=== PATIENT | female | born 1935 | race African-American/Black ===

== ENCOUNTER 2017-04-08 08:00 | Outpatient (CLI) | payer MEDICARE, MEDICAID | END 2017-04-08 08:01 | disposition home or self-care (01) | LOC: BICMAMMO 08:00 | PROVIDERS: ATTEND Family Medicine | DX: Z12.31 Encounter for screening mammogram for malignant neoplasm of breast (principal); Z80.3 Family history of malignant neoplasm of breast | CPT/HCPCS: 77063; G0202; 77067 ==

== ENCOUNTER 2018-09-09 14:23 | Observation (INO) | payer MEDICARE, MEDICAID ==
[2018-09-09 15:22] LABS: #Eosinphils 0.2 thou/uL (0.0-0.7); #Monocytes 0.6 thou/uL (0.11-0.59); #Neutrophils 3.4 thou/uL (1.40-6.50); %Basophils 0.8 % (0.0-1.0); %Lymphocytes 18.8 % (21.0-51.0); %Monocytes 11.9 % (0.0-10.0); %Neutrophils 65.5 % (42.0-75.0); Hemoglobin 12.1 g/dL (12.0-16.0); Mean Corpuscular HGB CONC 31.7 g/dL (32.0-36.0); Mean Corpuscular Hemoglobin 27.5 pg (27.0-31.0); Mean Corpuscular Volume 86.7 fL (78.0-98.0); RBC Distribution Width 12.3 % (11.5-14.5); White Blood Cell (WBC) Count 5.2 thou/uL (4.8-10.8)
--- NOTE | 2018-09-09 15:35 | CT ---
CT BRAIN NONCONTRAST: DATE: 09/09/2018 HISTORY: 83-year-old female with left-sided weakness FINDINGS: There is no evidence of acute intra-axial or extra-axial hemorrhage. There is no midline shift or any other mass effect. There is no extra-axial fluid collection. There is no evidence of obstructive hydrocephalus. Calvarium is intact. There is diffuse brain parenchymal volume loss. There are low att enuation areas in the white matter. These are nonspecific, but in a patient of this age, they are probably chronic ischemic white matter changes due to microvascular atherosclerosis. Tiny old lacunar infarctions, one in the left basal ganglia and another very close to head of left caudate nucleus. Focal atrophy of anterior aspect of left temporal lobe with surrounding increased volume of CSF space . This could either be an arachnoid cyst or old insult. The latter is favored. IMPRESSION: 1) No acute intracranial findings. 2) involutional changes and severe chronic ischemic white matter changes. 3) old insult at anterior left temporal lobe, either small to moderate-sized old infarction or prior trauma. 4) a few tiny old lacunar infarctions in left corpus striatum.
[2018-09-09 15:36] LABS: ALT (SGPT) 17 U/L (8-55); AST (SGOT) 20 U/L (5-34); Albumin 4.2 g/dL (3.4-4.8); Alkaline Phosphatase 72 U/L (40-150); Anion Gap 10 mmol/L (10-20); BUN (Urea Nitrogen) 16 mg/dL (9.8-20.1); Bilirubin, Total 0.4 mg/dL (0.2-1.2); CK (CPK) 179 U/L (29-168); Calc. Creatinine Clearance 0 mL/min (70-130); Calcium 9.3 mg/dL (7.8-10.44); Carbon Dioxide 31 mmol/L (23-31); Chloride 104 mmol/L (98-107); Estimated GFR-MDRD 79; Globulin 2.9 g/dL (2.4-3.5); Glucose 129 mg/dL (83-110); Lipase 16 U/L (8-78); Potassium 3.5 mmol/L (3.5-5.1); Protein, Total 7.1 g/dL (6.0-8.3); Sodium 141 mmol/L (136-145)
[2018-09-09 15:37] LABS: Large Platelets SLIGHT; MDiff Complete? YES; Mean Platelet Volume 11.1 fL (7.4-10.4); Platelet Count 148 thou/uL (130-400); Platelet Morphology Comment Appears Adequate; RBC Morphology Normal
--- NOTE | 2018-09-09 15:38 | RAD ---
PORTABLE CHEST 1 VIEW: Date: 09/09/18 Time: 1518 hours HISTORY: Altered mental status. FINDINGS/IMPRESSION: The heart is enlarged. The aorta is tortuous. The lungs are expanded without lobar consolidation, pne umothoraces, daniel pulmonary edema, or pleural effusions. POS: TPC
[2018-09-09 15:58] LABS: CKMB 3.3 ng/mL (0-6.6)
[2018-09-09 16:13] LABS: Bilirubin Negative (Negative); Blood, Urine Negative (Negative); Clarity CLEAR (Clear); Glucose, Urine (Dipstick) 100 mg/dL (Negative); Leukocyte Negative (Negative); Nitrite Negative (Negative); Protein, Urine (Dipstick) 30 mg/dL (Neg-Trace); Specific Gravity, Urine 1.014 (1.002-1.036); pH, Urine 7.5 (5.0-9.0)
[2018-09-09 16:16] LABS: Bacteria/HPF None Seen HPF (None Seen); Hyaline Casts/LPF 0-3 HYALINE CAST LPF (0-3 Hyaline); Squamous Epithelial 0-3 HPF (0-3)
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
[2018-09-09] MEDS ORDERED: Ondansetron ODT 4 MG TAB SL PRN (20:34)
[2018-09-09] MEDS ORDERED: Sodium Chloride 0.9% 1,000 ML IV SCH (20:34)
[2018-09-09] MEDS ORDERED: Ondansetron PF 4 MG/2 ML Vial IVP PRN (20:34)
[2018-09-09] MEDS ORDERED: HumaLOG 300 UNITS/3 ML VIAL SC PRN (21:24)
[2018-09-09] MEDS ORDERED: Dextrose 5% in Water 1,000 ML IV PRN (21:24)
[2018-09-09] MEDS ORDERED: Dextrose 50% Abboject 50 ML SYRINGE SLOW IVP PRN (21:24)
[2018-09-09] MEDS ORDERED: Aspirin 325 MG TAB PO SCH (21:30)
[2018-09-09] MEDS ORDERED: Furosemide 20 MG TAB PO SCH (21:30)
[2018-09-09] MEDS ORDERED: Rosuvastatin 20 MG TAB PO SCH (21:30)
[2018-09-09] MEDS: hydrALAZINE 20 MG/ML VIAL SLOW IVP SCH (21:34)
[2018-09-09 22:41] LABS: CKMB 4.1 ng/mL (0-6.6)
[2018-09-10 05:09] LABS: Anion Gap 12 mmol/L (10-20); BUN (Urea Nitrogen) 15 mg/dL (9.8-20.1); Calc. Creatinine Clearance 50 mL/min (70-130); Carbon Dioxide 24 mmol/L (23-31); Chloride 103 mmol/L (98-107); Estimated GFR-MDRD 73; Glucose 125 mg/dL (83-110); Sodium 135 mmol/L (136-145)
[2018-09-10 05:12] LABS: #Eosinphils 0.1 thou/uL (0.0-0.7); #Lymphocytes 0.9 thou/uL (1.20-3.40); #Monocytes 0.4 thou/uL (0.11-0.59); #Neutrophils 4.8 thou/uL (1.40-6.50); %Basophils 0.7 % (0.0-1.0); %Lymphocytes 13.6 % (21.0-51.0); %Monocytes 6.8 % (0.0-10.0); %Neutrophils 76.9 % (42.0-75.0); Hemoglobin 12.5 g/dL (12.0-16.0); Mean Corpuscular HGB CONC 32.2 g/dL (32.0-36.0); Mean Corpuscular Hemoglobin 27.7 pg (27.0-31.0); Mean Corpuscular Volume 86.2 fL (78.0-98.0); Mean Platelet Volume 10.8 fL (7.4-10.4); Platelet Count 145 thou/uL (130-400); RBC Distribution Width 12.3 % (11.5-14.5); White Blood Cell (WBC) Count 6.2 thou/uL (4.8-10.8)
[2018-09-10 06:21] LABS: Cardiac Risk 2.3 (Less than 4.5)
--- NOTE | 2018-09-10 06:27 | PDOC.FM ---
- Subjective Subjective: Patient endorses feeling alright this AM. Oriented to person, place, and time but doesn't always acknowledge questions appropriately. Is very preocupied with her tooth pain. Says she has not gotten up to walk yet. - Objective MAR Reviewed: Yes Vital Signs & Weight: Vital Signs (12 hours) Temp Pulse Resp BP Pulse Ox 09/10/18 04:00 98.1 F 55 L 16 181/88 H 97 09/10/18 00:00 98.1 F 62 16 172/83 H 95 09/09/18 23:47 156/74 H 09/09/18 21:34 56 L 09/09/18 20:00 97.8 F 56 L 16 97 09/09/18 19:40 97.8 F 57 L 18 221/104 H 97 Weight Weight 66.224 kg Result Diagrams: 09/10/18 04:26 09/10/18 04:26 Phys Exam - Physical Examination Constitutional: NAD HEENT: moist MMs, sclera anicteric Neck: supple, full ROM Respiratory: no wheezing, no rales, clear to auscultation bilateral expiratory rhonchi in B/L upper lung [place] Cardiovascular: RRR, no significant murmur Musculoskeletal: pulses present, edema present (trace edema in B/L ankles) Neurological: non-focal, normal sensation, moves all 4 limbs Psychiatric: normal affect, A&O x 3 Skin: no rash, normal turgor Dx/Plan (1) Diabetes mellitus, type II Status: Acute (2) Elevated brain natriuretic peptide (BNP) level Code(s): R79.89 - OTHER SPECIFIED ABNORMAL FINDINGS OF BLOOD CHEMISTRY Status : Acute (3) Elevated troponin Code(s): R74.8 - ABNORMAL LEVELS OF OTHER SERUM ENZYMES Status: Acute (4) TIA (transient ischemic attack) Code(s): G45.9 - TRANSIENT CEREBRAL ISCHEMIC ATTACK, UNSPECIFIED Status: Acute (5) HLD (hyperlipidemia) Code(s): E78.5 - HYPERLIPIDEMIA, UNSPECIFIED Status: Chronic (6) HTN (hypertension) Code(s): I10 - ESSENTIAL (PRIMARY) HYPERTENSION Status: Chronic Qualifiers: Hypertension type: essential hypertension Qualified Code(s): I10 - Essential (primary) hypertension - Plan Plan: TIA vs. CVA - Intermittent nature of symptoms atypical for CVA, possible TIA. CT on admission only shows old infarcts. MRI pending for this AM as well as TTE & carotid dopplers to assess for source. -FLP & A1c pending for risk stratification. -Will continue ASA & rosuvastatin but at 40mg HS rather than 20mg. -Neurology consulted yesterday. To see this AM. Appreciate recs. -PT & OT consulted as well. Will consult CM to assist with placement upon discharge as patient will likely require a short rehab stay. Hyponatremia - Na 135 this AM. Likely 2/2 decreased PO intake since admission. Patient asymptomatic. Will continue to monitor. elevated trop - trop .043 on admission but has since downtrended. Patient remains asymtompatic. Likely 2/2 demand ischemia from severe range BPs. Will recheck should patient become symptomatic. Suspected CHF - Patient unclear on if she has previous dx but BNP was 1860 on admission. No echos for reference on chart review but patient reports that Frankie is her Shank Sander. ECHO pending but patient remains asymptomatic and has been satting well on RA with only mild LE edema since admission. - Will continue usual CHF precautions such as fluid restriction, daily weights and strict I&Os once tolerating PO. HTN - Patient had multiple severe range pressures overnight. Has hydralazine 10 PRN. Will resume home meds once confirmed with patient's daughter this AM. In the meantime will continue lisinopril. HLD - Will resume home rosuvastatin but at 40mg. - FLP this AM. DMII - Patient reports diet controlled. A1c pending for this AM. Will continue SSI & ACHS accuchecks for now. Addendum - Attending - Attending Attestation Date/Time: 09/10/18 1380 I personally evaluated the patient and discussed the management with Dr. Wilkerson. I agree with the History, Examination, Assessment and Plan documented above with any addition or exceptions noted below. Patient here for CVA/TIA r/o. Denies weakness or sensory loss. Has no complaints. Awaiting results of MRI, Carotid dopplers, and TTE. Continue BP control after med rec. Complete risk stratification and therapy assessments. If workup negative and safe to return home, possible discharge later today.
[2018-09-10 06:41] LABS: Hemoglobin A1c 5.8 % (4.0-6.0)
[2018-09-10] MEDS: hydrALAZINE 20 MG/ML VIAL SLOW IVP PRN (06:53)
[2018-09-10] MEDS: hydrALAZINE 20 MG/ML VIAL SLOW IVP SCH (07:04)
[2018-09-10] MEDS: Aspirin 81 mg Enteric Coated Tablet PO SCH (08:54)
[2018-09-10] MEDS: Enoxaparin Sodium 40 MG/0.4 ML SYRINGE SC SCH (08:55)
[2018-09-10] MEDS ORDERED: Rosuvastatin 10 MG TAB PO SCH (09:00)
[2018-09-10] MEDS ORDERED: Lisinopril 20 MG TAB PO SCH (09:00)
--- NOTE | 2018-09-10 09:17 | ULT ---
CAROTID ULTRASOUND WITH NAVARRETE SCALE AND DOPPLER DUPLEX COLOR FLOW IMAGING SPECTRAL ANALYSIS PERFORMED: CLINICAL INDICATION: TIA, CVA. FINDINGS: There is scattered mild atherosclerotic calcification of the carotid arteries. PEAK SYSTOLIC VELOCITY (CM/S): Right CCA 79 Left CCA 100 Right ICA 56 Left ICA 66 There is antegrade flow within the visualized right vertebral arteries. Indeterminate flow direction ality of the left vertebral artery. IMPRESSION: 1. No hemodynamically significant stenosis of the right internal carotid artery. 2. No hemodynamically significant stenosis of the left internal carotid artery. 3. Indeterminate direction of flow of the left vertebral artery. POS: C
[2018-09-10] MEDS ORDERED: Spironolactone 25 MG TAB PO SCH ×2 (10:07→10:30)
[2018-09-10] MEDS ORDERED: NIFEDIPINE PO SCH (10:15)
[2018-09-10] MEDS ORDERED: Furosemide 40 MG TAB PO SCH ×2 (10:15→10:30)
[2018-09-10] MEDS ORDERED: NIFEdipine XL 60 MG TAB PO SCH (10:30)
--- NOTE | 2018-09-10 10:37 | MRI ---
BRAIN MRI WITHOUT CONTRAST: HISTORY: Transient ischemic attack versus CVA. Left-sided weakness. COMPARISON: None. FINDINGS: No hemorrhage on the axial gradient echo sequence. Calvarium has a normal T1 marrow signal intensity. Midline brain parenchymal structures are unremark able. Central arterial flow voids are maintained. Absent restricted diffusion. T2 and FLAIR white matter hyperintensities due to chronic small-vessel ischemic changes are identifie d. Central arterial flow voids are maintained. Absent restricted diffusion. Mucosal disease involving the left maxillary sinus. Partial opacification of the posterior left nasa l cavity. Remote lacunar infarct with cavitation. IMPRESSION: 1. Absent restricted diffusion. No acute infarct. 2. T2 and FLAIR white matter hyperintensities compatible with compatible with chronic small-vessel i schemic change. POS: OFF
[2018-09-10] MEDS: Acetaminophen 325 MG TAB PO PRN ×2 (11:10→22:14)
[2018-09-10] MEDS: Promethazine HCl 25 MG/ML VIAL IM/IV PRN ×2 (11:56→11:58)
[2018-09-10] MEDS ORDERED: Carvedilol 6.25 MG TAB PO SCH (21:00)
[2018-09-10] MEDS ORDERED: Rosuvastatin 20 MG TAB PO SCH (21:00)
[2018-09-10] MEDS: cloNIDine 0.1 MG TAB PO SCH (22:12)
[2018-09-10] MEDS: Carvedilol 3.125 MG TAB PO SCH (22:13)
[2018-09-10] MEDS: Rosuvastatin 20 MG TAB PO SCH (22:13)
[2018-09-11] MEDS ORDERED: Ondansetron ODT 8 MG TAB SL PRN (06:59)
--- NOTE | 2018-09-11 07:01 | PDOC.FM ---
- Subjective Subjective: Patient states she feels well this AM. Oriented to person, place and time. Is not convinced she needs rehab. Denies any chest pain, SOB, or difficulty ambulating despite PT's note stating she needed significant assistance. - Objective MAR Reviewed: Yes Vital Signs & Weight: Vital Signs (12 hours) Temp Pulse Resp BP BP Pulse Ox 09/11/18 03:53 98.0 F 60 16 114/58 L 95 09/10/18 23:50 97.8 F 55 L 16 125/61 96 09/10/18 22:12 170/85 H 09/10/18 19:40 98.6 F 62 16 170/85 H 94 L Weight Weight 66.678 kg I&O: 09/10/18 09/11/18 09/12/18 06:59 06:59 06:59 Intake Total 301 Output Total 300 700 Balance -300 -399 Result Diagrams: 09/10/18 04:26 09/10/18 04:26 Phys Exam - Physical Examination Constitutional: NAD HEENT: moist MMs, sclera anicteric Neck: supple, full ROM Respiratory: no wheezing, no rales, no rhonchi, clear to auscultation bilateral Cardiovascular: RRR, no significant murmur Musculoskeletal: no edema, pulses present Neurological: non-focal, moves all 4 limbs Psychiatric: normal affect, A&O x 3 Skin: no rash, normal turgor Dx/Plan (1) Diabetes mellitus, type II Status: Acute Qualifiers: Diabetes mellitus care home insulin use: without care home use (2) Elevated brain natriuretic peptide (BNP) level Code(s): R79.89 - OTHER SPECIFIED ABNORMAL FINDINGS OF BLOOD CHEMISTRY Status : Acute (3) Elevated troponin Code(s): R74.8 - ABNORMAL LEVELS OF OTHER SERUM ENZYMES Status: Acute (4) TIA (transient ischemic attack) Code(s): G45.9 - TRANSIENT CEREBRAL ISCHEMIC ATTACK, UNSPECIFIED Status: Acute (5) HLD (hyperlipidemia) Code(s): E78.5 - HYPERLIPIDEMIA, UNSPECIFIED Status: Chronic (6) HTN (hypertension) Code(s): I10 - ESSENTIAL (PRIMARY) HYPERTENSION Status: Chronic Qualifiers: Hypertension type: essential hypertension Qualified Code(s): I10 - Essential (primary) hypertension - Plan Plan: Intermittent LLE Weakness - Intermittent nature of symptoms atypical for CVA & MRI showed no acute infarct , only chronic small vessel ischemic changes. -FLP & A1c show adequate control of comorbidities. -Will continue ASA & rosuvastatin. -PT & OT on board. -CM to assist with placement upon discharge as family desires placement. Rehab screen also placed yesterday per family's request. Hyponatremia - Na 135 this AM. Likely 2/2 decreased PO intake since admission. Patient asymptomatic. Will continue to monitor. elevated trop - trop .043 on admission but has since downtrended. Patient remains asymtompatic. Likely 2/2 demand ischemia from severe range BPs. Will recheck should patient become symptomatic. HFpEF - Echo yesterday showed an EF of 55-60% with diastolic dysfunction. - Will continue usual CHF precautions such as QD fluid restriction & weights and strict I&Os. - Will continue home meds. HTN - Patient has had no severe range pressures since resuming home meds yesterday. Will continue to monitor BP closely and continue home meds. HLD - Will continue home meds. DMII - A1c 5.8 this admission. - Will continue SSI, ACHS accuchecks, & CC diet. Physical deconditioning - OT & PT on board & recommend IP rehab & IP rehab vs home with 24 hour supervision and HH, respectively. Patient noted to have ataxic/unsteady gait, left lateral lean, and poor safety awareness. Also concern by nursing for safe home medication administration & patient reportedly anxious about returning home. - CM to assist with placement. Addendum - Attending - Attending Attestation Date/Time: 09/11/18 6202 I personally evaluated the patient and discussed the management with Dr. Wilkerson. I agree with the History, Examination, Assessment and Plan documented above with any addition or exceptions noted below. Patient here with initial CVA r/o that has been ruled out. She also had elevated BP that is improved at this time now that home meds have been resumed. Family reports unable to care for patient and so rehab consult has been placed. Patient overall has no complaints or focal neuro deficits.
[2018-09-11] MEDS: Carvedilol 3.125 MG TAB PO SCH ×2 (08:36→21:12)
[2018-09-11] MEDS: Furosemide 40 MG TAB PO SCH (08:36)
[2018-09-11] MEDS: NIFEdipine XL 60 MG TAB PO SCH (08:36)
[2018-09-11] MEDS: Aspirin 81 mg Enteric Coated Tablet PO SCH (08:36)
[2018-09-11] MEDS: Enoxaparin Sodium 40 MG/0.4 ML SYRINGE SC SCH (08:37)
[2018-09-11] MEDS: Acetaminophen 325 MG TAB PO PRN (08:37)
[2018-09-11] MEDS: Spironolactone 25 MG TAB PO SCH (08:37)
[2018-09-11] MEDS ORDERED: Non-Formulary Item 1 EACH (Olmesartan Medoxomil [Benicar] 40 MG) PO SCH (09:00)
[2018-09-11 09:41] LABS: Anion Gap 10 mmol/L (10-20); BUN (Urea Nitrogen) 27 mg/dL (9.8-20.1); Calc. Creatinine Clearance 33 mL/min (70-130); Calcium 8.8 mg/dL (7.8-10.44); Carbon Dioxide 30 mmol/L (23-31); Chloride 101 mmol/L (98-107); Estimated GFR-MDRD 45; Glucose 130 mg/dL (83-110); Potassium 3.7 mmol/L (3.5-5.1); Sodium 137 mmol/L (136-145)
[2018-09-11] MEDS: Rosuvastatin 20 MG TAB PO SCH (21:12)
[2018-09-11] MEDS: cloNIDine 0.1 MG TAB PO SCH (21:12)
[2018-09-12 05:41] VITALS: BMI 29.1
[2018-09-12 06:09] LABS: Anion Gap 9 mmol/L (10-20); BUN (Urea Nitrogen) 34 mg/dL (9.8-20.1); Calc. Creatinine Clearance 33 mL/min (70-130); Calcium 8.6 mg/dL (7.8-10.44); Carbon Dioxide 31 mmol/L (23-31); Chloride 103 mmol/L (98-107); Estimated GFR-MDRD 45; Glucose 98 mg/dL (83-110); Potassium 3.9 mmol/L (3.5-5.1); Sodium 139 mmol/L (136-145)
--- NOTE | 2018-09-12 08:53 | PDOC.FM ---
- Subjective Subjective: Pt states she feels well this AM. No new complaitns or concerns, she anticipates working with rehab today for eval of inpt rehab. - Objective Vital Signs & Weight: Vital Signs (12 hours) Temp Pulse Resp BP BP Pulse Ox 09/12/18 07:52 99.2 F 54 L 16 168/81 H 94 L 09/12/18 04:00 98.7 F 58 L 16 170/79 H 95 09/12/18 00:00 99.1 F 54 L 16 135/70 98 09/11/18 21:12 136/65 Weight Weight 67.676 kg I&O: 09/11/18 09/12/18 09/13/18 06:59 06:59 06:59 Intake Total 301 1400 Output Total 700 1300 Balance -399 100 Result Diagrams: 09/10/18 04:26 09/12/18 04:38 Phys Exam - Physical Examination Constitutional: NAD HEENT: moist MMs, sclera anicteric Neck: no JVD, supple Respiratory: no wheezing, clear to auscultation bilateral Cardiovascular: RRR, no significant murmur Gastrointestinal: soft, non-tender Musculoskeletal: no edema, pulses present Neurological: normal sensation, moves all 4 limbs Psychiatric: normal affect Skin: no rash, normal turgor Dx/Plan (1) TIA (transient ischemic attack) Code(s): G45.9 - TRANSIENT CEREBRAL ISCHEMIC ATTACK, UNSPECIFIED Status: Acute (2) Elevated troponin Code(s): R74.8 - ABNORMAL LEVELS OF OTHER SERUM ENZYMES Status: Acute (3) Elevated brain natriuretic peptide (BNP) level Code(s): R79.89 - OTHER SPECIFIED ABNORMAL FINDINGS OF BLOOD CHEMISTRY Status : Acute (4) HLD (hyperlipidemia) Code(s): E78.5 - HYPERLIPIDEMIA, UNSPECIFIED Status: Chronic (5) HTN (hypertension) Code(s): I10 - ESSENTIAL (PRIMARY) HYPERTENSION Status: Chronic Qualifiers: Hypertension type: essential hypertension Qualified Code(s): I10 - Essential (primary) hypertension - Plan Plan: Intermittent LLE Weakness A- Intermittent nature of symptoms atypical for CVA & MRI showed no acute infarct, only chronic small vessel ischemic changes. FLP & A1c show adequate control of comorbidities. P-Will continue ASA & rosuvastatin. -PT & OT on board. -placement Physical deconditioning A- OT & PT on board & recommend IP rehab & IP rehab vs home with 24 hour supervision and HH. Yesterday pt agreeable to inpt rehab. P- CM to assist with placement. -inpt rehab screen today HFpEF A- Echo yesterday showed an EF of 55-60% with diastolic dysfunction. P- QD fluid restriction & weights and strict I&Os. -continue home meds. -control BP elevated trop A- trop .043 on admission but has since downtrended. Patient remains asymtompatic. Likely 2/2 demand ischemia from severe range BPs. P- Will recheck should patient become symptomatic. HTN -home meds Hyponatremia -resolved HLD - Will continue home meds. DMII - A1c 5.8 this admission. SSI, ACHS accuchecks, & CC diet. dispo: placement Addendum - Attending - Attending Attestation Date/Time: 09/12/18 1046 I personally evaluated the patient and discussed the management with Dr. Andrews. I agree with the History, Examination, Assessment and Plan documented above with any addition or exceptions noted below. Radiologic findings showing no acute pathology, continue ASA and high dose statin, will get ankle brachial index today to eval for PAD source, consider Peripheral neuropthy vs radicular source of weakness, inpt rehab screen today. Pt is agreeable for inpt rehab.
[2018-09-12] MEDS: Spironolactone 25 MG TAB PO SCH (09:19)
[2018-09-12] MEDS: NIFEdipine XL 60 MG TAB PO SCH (09:19)
[2018-09-12] MEDS: Furosemide 40 MG TAB PO SCH (09:19)
[2018-09-12] MEDS: Carvedilol 3.125 MG TAB PO SCH ×2 (09:19→20:30)
[2018-09-12] MEDS: Aspirin 81 mg Enteric Coated Tablet PO SCH (09:20)
[2018-09-12] MEDS: Enoxaparin Sodium 30 MG/0.3 ML SYRINGE SC SCH (09:20)
[2018-09-12] MEDS: Docusate 100 MG CAP PO PRN (11:51)
[2018-09-12] MEDS: cloNIDine 0.1 MG TAB PO SCH (20:29)
[2018-09-12] MEDS: Rosuvastatin 20 MG TAB PO SCH (20:30)
[2018-09-13 06:27] LABS: Anion Gap 11 mmol/L (10-20); BUN (Urea Nitrogen) 28 mg/dL (9.8-20.1); Calc. Creatinine Clearance 46 mL/min (70-130); Calcium 9.1 mg/dL (7.8-10.44); Carbon Dioxide 32 mmol/L (23-31); Chloride 103 mmol/L (98-107); Estimated GFR-MDRD 66; Glucose 92 mg/dL (83-110); Potassium 4.2 mmol/L (3.5-5.1); Sodium 142 mmol/L (136-145)
--- NOTE | 2018-09-13 08:31 | PDOC.FM ---
- Subjective Subjective: Pt feels well and has no complaints, pt does not feel her leg is weak this AM. No new neurologic symptoms. - Objective Vital Signs & Weight: Vital Signs (12 hours) Temp Pulse Resp BP BP Pulse Ox 09/13/18 07:43 98.3 F 52 L 16 178/88 H 96 09/13/18 04:00 97.5 F L 55 L 18 179/84 H 96 09/13/18 00:00 97.9 F 51 L 16 145/70 H 97 Weight Weight 66.95 kg I&O: 09/12/18 09/13/18 09/14/18 06:59 06:59 06:59 Intake Total 1400 2020 Output Total 1300 850 Balance 100 1170 Result Diagrams: 09/10/18 04:26 09/13/18 05:02 Phys Exam - Physical Examination Constitutional: NAD HEENT: moist MMs, sclera anicteric Neck: supple, full ROM Respiratory: no wheezing, clear to auscultation bilateral Cardiovascular: RRR, no significant murmur YUMIKO 1 on R, YUMIKO .57 on L Gastrointestinal: soft, non-tender Musculoskeletal: pulses present Neurological: non-focal, normal sensation Psychiatric: normal affect Skin: no rash, normal turgor Dx/Plan (1) TIA (transient ischemic attack) Code(s): G45.9 - TRANSIENT CEREBRAL ISCHEMIC ATTACK, UNSPECIFIED Status: Acute (2) Elevated troponin Code(s): R74.8 - ABNORMAL LEVELS OF OTHER SERUM ENZYMES Status: Acute (3) Elevated brain natriuretic peptide (BNP) level Code(s): R79.89 - OTHER SPECIFIED ABNORMAL FINDINGS OF BLOOD CHEMISTRY Status : Acute (4) HLD (hyperlipidemia) Code(s): E78.5 - HYPERLIPIDEMIA, UNSPECIFIED Status: Chronic (5) HTN (hypertension) Code(s): I10 - ESSENTIAL (PRIMARY) HYPERTENSION Status: Chronic Qualifiers: Hypertension type: essential hypertension Qualified Code(s): I10 - Essential (primary) hypertension - Plan Plan: Intermittent LLE Weakness 2/2 PAD A- Intermittent nature of symptoms atypical for CVA & MRI showed no acute infarct, only chronic small vessel ischemic changes. FLP & A1c show adequate control of comorbidities. YUMIKO today 0.57 on L P-Will continue ASA & rosuvastatin. -PT & OT on board. -recommend f/u with CV surg outpt -placement Physical deconditioning A- OT & PT on board & recommend IP rehab & IP rehab vs home with 24 hour supervision and HH. Yesterday pt agreeable to inpt rehab. P- CM to assist with placement. -inpt rehab screen today HFpEF A- Echo yesterday showed an EF of 55-60% with diastolic dysfunction. P- QD fluid restriction & weights and strict I&Os. -continue home meds. -control BP elevated trop A- trop .043 on admission but has since downtrended. Patient remains asymtompatic. Likely 2/2 demand ischemia from severe range BPs. P- Will recheck should patient become symptomatic. HTN -home meds Hyponatremia -resolved HLD - Will continue home meds. DMII - A1c 5.8 this admission. SSI, ACHS accuchecks, & CC diet. dispo: placement Addendum - Attending - Attending Attestation Date/Time: 09/13/18 8090 I personally evaluated the patient and discussed the management with Dr. Andrews. I agree with the History, Examination, Assessment and Plan documented above with any addition or exceptions noted below. 83 yo F with numerous comorbidites here with persistent L sided weakness. No central etiology identified on imaging and YUMIKO slightly abnormal. Suspect possible PVD and would recommend imaging in the outpatient setting. Will plan on d/c to rehab facility for assistance with deconditioning prior to return home. Awaiting bed at [facility].
[2018-09-13] MEDS: Carvedilol 3.125 MG TAB PO SCH ×2 (08:51→20:19)
[2018-09-13] MEDS: Aspirin 81 mg Enteric Coated Tablet PO SCH (08:51)
[2018-09-13] MEDS: Docusate 100 MG CAP PO PRN ×2 (08:51→20:19)
[2018-09-13] MEDS: Spironolactone 25 MG TAB PO SCH (08:52)
[2018-09-13] MEDS: NIFEdipine XL 60 MG TAB PO SCH (08:52)
[2018-09-13] MEDS: Furosemide 40 MG TAB PO SCH (08:52)
[2018-09-13] MEDS: Enoxaparin Sodium 30 MG/0.3 ML SYRINGE SC SCH (08:53)
[2018-09-13] MEDS: hydrALAZINE 20 MG/ML VIAL SLOW IVP PRN (11:58)
[2018-09-13] MEDS: cloNIDine 0.1 MG TAB PO SCH (20:18)
[2018-09-13] MEDS: Rosuvastatin 20 MG TAB PO SCH (20:19)
--- NOTE | 2018-09-14 08:37 | PDOC.FM ---
- Subjective Subjective: Pt doing well with no complaints today. Feels her LE strength is symetric on R and L. No concerns at this time. - Objective Vital Signs & Weight: Vital Signs (12 hours) Temp Pulse Resp BP Pulse Ox 09/13/18 22:45 98.2 F 59 L 18 145/75 H 95 Weight Weight 66.95 kg I&O: 09/13/18 09/14/18 09/15/18 06:59 06:59 06:59 Intake Total 2020 950 Output Total 850 Balance 1170 950 Result Diagrams: 09/10/18 04:26 09/13/18 05:02 Phys Exam - Physical Examination Constitutional: NAD HEENT: moist MMs, sclera anicteric Neck: supple, full ROM Respiratory: no wheezing, clear to auscultation bilateral Cardiovascular: RRR, no significant murmur Gastrointestinal: soft, non-tender Musculoskeletal: no edema, pulses present Neurological: non-focal, normal sensation, moves all 4 limbs Psychiatric: normal affect Skin: no rash, normal turgor Dx/Plan (1) TIA (transient ischemic attack) Code(s): G45.9 - TRANSIENT CEREBRAL ISCHEMIC ATTACK, UNSPECIFIED Status: Acute (2) Elevated troponin Code(s): R74.8 - ABNORMAL LEVELS OF OTHER SERUM ENZYMES Status: Acute (3) Elevated brain natriuretic peptide (BNP) level Code(s): R79.89 - OTHER SPECIFIED ABNORMAL FINDINGS OF BLOOD CHEMISTRY Status : Acute (4) HLD (hyperlipidemia) Code(s): E78.5 - HYPERLIPIDEMIA, UNSPECIFIED Status: Chronic (5) HTN (hypertension) Code(s): I10 - ESSENTIAL (PRIMARY) HYPERTENSION Status: Chronic Qualifiers: Hypertension type: essential hypertension Qualified Code(s): I10 - Essential (primary) hypertension - Plan Plan: Intermittent LLE Weakness likely 2/2 PAD A- Intermittent nature of symptoms atypical for CVA & MRI showed no acute infarct, only chronic small vessel ischemic changes. FLP & A1c show adequate control of comorbidities. YUMIKO today 0.57 on L P-Will continue ASA & rosuvastatin. -PT & OT on board. -recommend f/u imaging outpt for PAD -placement Physical deconditioning A- OT & PT on board & recommend IP rehab & IP rehab. Yesterday pt agreeable to inpt rehab. P- CM to assist with placement. HFpEF A- Echo yesterday showed an EF of 55-60% with diastolic dysfunction. P- QD fluid restriction & weights and strict I&Os. -continue home meds. -control BP elevated trop A- trop .043 on admission but has since downtrended. Patient remains asymtompatic. Likely 2/2 demand ischemia from severe range BPs. P- Will recheck should patient become symptomatic. HTN -home meds Hyponatremia -resolved HLD - Will continue home meds. DMII - A1c 5.8 this admission. SSI, ACHS accuchecks, & CC diet. dispo: placement
[2018-09-14] MEDS: NIFEdipine XL 60 MG TAB PO SCH (08:52)
[2018-09-14] MEDS: Carvedilol 3.125 MG TAB PO SCH (08:53)
[2018-09-14] MEDS: Spironolactone 25 MG TAB PO SCH (08:53)
[2018-09-14] MEDS: Enoxaparin Sodium 30 MG/0.3 ML SYRINGE SC SCH (08:53)
[2018-09-14] MEDS: Aspirin 81 mg Enteric Coated Tablet PO SCH (08:53)
[2018-09-14] MEDS: Furosemide 40 MG TAB PO SCH (08:53)
[2018-09-14 17:14] VITALS: BP 173/85; TEMP 98.6
--- NOTE | 2018-09-15 11:35 | DIS ---
DATE OF ADMISSION: 09/09/2018 DATE OF DISCHARGE: 09/14/2018 RESIDENT: Abran Andrews MD ADMITTING ATTENDING: Ray Awan MD DISCHARGE ATTENDING: Ray Awan MD CONSULTS: None. PROCEDURES: 1. On 09/09/2018, brain CT, impression, no acute intracranial findings, involutional changes, and severe chronic ischemic white changes, bulb insult at anterior left temporal lobe, either small to moderate size old infarction or prior trauma, a few tiny old lacunar infarcts of left corpus striatum. 2. On 09/09/2018, chest x-ray, impression, the heart is enlarged. The aorta is tortuous. The lungs are expanded without lobar consolidation, pneumothoraces, daniel pulmonary edema, or pleural effusions. 3. On 09/10/2018, brain MRI. a. Absent restricted diffusion. No acute infarct. b. T2/FLAIR white matter hyperintensities compatible with chronic small-vessel ischemia change. 4. On 09/10/2018, carotid Doppler study, impression, no hemodynamically significant stenosis of internal carotid artery or left internal carotid artery, indeterminate direction of flow of the left vertebral artery. PRIMARY DIAGNOSIS: Left lower extremity secondary to likely peripheral artery disease. SECONDARY DIAGNOSIS: 1. Physical deconditioning. 2. Heart failure with preserved ejection fraction. 3. Elevated troponin. 4. Hypertension. 5. Hyponatremia. 6. Hyperlipidemia. 7. Type 2 diabetes. DISCHARGE MEDICATIONS: 1. Clonidine 0.1 mg p.o. at bedtime. 2. Olmesartan 40 mg p.o. daily. 3. Spironolactone 25 mg p.o. daily. 4. Nifedipine 60 mg p.o. daily. 5. Carvedilol 3.125 mg p.o. b.i.d. 6. Furosemide 40 mg p.o. daily. 7. Aspirin 81 mg p.o. daily. 8. Colace 100 mg p.o. b.i.d. p.r.n. DISCONTINUED MEDICATIONS: None. HISTORY OF PRESENT ILLNESS/HOSPITAL COURSE: This is an 83-year-old female who presented to the hospital with left lower extremity weakness. As reported by her daughters, the patient did not feel that she had any great problems. The patient was admitted for TIA versus stroke rule out. Imaging studies that were appropriate were done and all came back normal, and ankle-brachial indexes done for suspicion of PAD, which came back at 0.57 on the left side, indicating possible and probable peripheral artery disease on the left. The patient was eventually placed in inpatient rehab and was discharged today with recommendations for outpatient followup on peripheral artery disease and further studies recommended to PCP may include Doppler studies versus CT angiograms. DISPOSITION: Stable. DISCHARGE INSTRUCTIONS: 1. Location: [facility] with rehab. 2. Diet: Fluid restriction, healthy heart, low-sodium. 3. Activity: As tolerated. Recommend occupational therapy and physical therapy. 4. Followup: Follow up with Dr. Her in 7 days. Job ID: [id number]
== END 2018-09-14 17:26 ==
LOC: ERS 14:23 → 2SE 19:39 → T4-B 09-13 22:40
PROVIDERS: ADMIT Student in an Organized Health Care Education/Training Program; ATTEND Student in an Organized Health Care Education/Training Program
DX: R53.1 Weakness (principal); R53.81 Other malaise; I11.0 Hypertensive heart disease with heart failure; I50.30 Unspecified diastolic (congestive) heart failure; R74.8 Abnormal levels of other serum enzymes; E78.5 Hyperlipidemia, unspecified; E11.9 Type 2 diabetes mellitus without complications; E87.1 Hypo-osmolality and hyponatremia; R79.89 Other specified abnormal findings of blood chemistry; Z86.73 Personal history of transient ischemic attack (TIA), and cerebral infarction without residual deficits; Z79.82 Long term (current) use of aspirin; Z79.899 Other long term (current) drug therapy
CPT/HCPCS: 70450; 70551; 71045; 80048 ×4; 80061; 82140; 82550; 82553; 82962 ×6; 83036; 83690; 83880; 84484 ×3; 85025; 87086; 93005; 93306; 93798; 93880; 94760; 96361; 96372 ×4; 96374; 96375 ×2; 96376 ×2; 97110; 97116 ×3; 97139 ×2; 97535; 99285; G0378 ×3; 36415; 36416; 80053; 81003; 81015; 84443; 96360; J0360; J1650; J2405; J2550; Q0162

== ENCOUNTER 2019-02-08 01:29 | Inpatient (IN) | payer MEDICARE, MEDICAID ==
[2019-02-08] MEDS ORDERED: Furosemide 40 MG/4 ML VIAL ONE ×3 (01:48→16:29)
[2019-02-08] MEDS ORDERED: Nitroglycerin 50 MG/250 ML BOT 250 ML ONE (01:48)
[2019-02-08 02:14] LABS: Hemoglobin 10.6 g/dL (12.0-16.0); Mean Corpuscular HGB CONC 31.5 g/dL (32.0-36.0); Mean Corpuscular Hemoglobin 27.5 pg (27.0-31.0); Mean Corpuscular Volume 87.2 fL (78.0-98.0); Mean Platelet Volume 11.1 fL (7.4-10.4); Platelet Count 143 thou/uL (130-400); Red Blood Cell (RBC) Count 3.84 mill/uL (4.20-5.40); White Blood Cell (WBC) Count 7.3 thou/uL (4.8-10.8)
[2019-02-08 02:18] LABS: #Basophils 0.1 thou/uL (0.0-0.2); #Eosinphils 0.3 thou/uL (0.0-0.7); #Lymphocytes 1.2 thou/uL (1.20-3.40); #Monocytes 0.4 thou/uL (0.11-0.59); #Neutrophils 5.3 thou/uL (1.40-6.50); %Basophils 0.8 % (0.0-1.0); %Eosinophils 4.2 % (0.0-10.0); %Lymphocytes 16.9 % (21.0-51.0); %Monocytes 5.3 % (0.0-10.0); %Neutrophils 72.7 % (42.0-75.0); Large Platelets SLIGHT; MDiff Complete? YES; Platelet Morphology Comment Appears Adequate
[2019-02-08 02:22] LABS: ALT (SGPT) 18 U/L (8-55); AST (SGOT) 26 U/L (5-34); Albumin 4.3 g/dL (3.4-4.8); Alkaline Phosphatase 62 U/L (40-110); Anion Gap 12 mmol/L (10-20); BUN (Urea Nitrogen) 25 mg/dL (9.8-20.1); Bilirubin, Total 0.4 mg/dL (0.2-1.2); Calc. Creatinine Clearance 0 mL/min (70-130); Calcium 9.4 mg/dL (7.8-10.44); Carbon Dioxide 28 mmol/L (23-31); Chloride 106 mmol/L (98-107); Estimated GFR-MDRD 56; Globulin 2.8 g/dL (2.4-3.5); Glucose 115 mg/dL (83-110); Potassium 3.8 mmol/L (3.5-5.1); Protein, Total 7.1 g/dL (6.0-8.3); Sodium 142 mmol/L (136-145)
--- NOTE | 2019-02-08 04:41 | PDOC.FPRHP ---
- History of Present Illness Chief Complaint: SOB History of Present Illness: 84yo F pt presented to the ED tonight via EMS for evaluation of SOB. Pt stated that show awoke in the middle of the night with significant SOB. She felt this was continuing to worsen so she called EMS for transfer and further eval. Upon arrival pt had O2 sat of 80% and systolic BP of 250. Pt was given 40mg IV lasix and started on Nitro drip. At time of eval pt was satting 97% on 2L with normal respirations and BP was 155 systolic off of the nitro drip. Pt denied any SOB. She did note that her BP gets very high at random times and could not attribute it to anything. She states she is taking her medications as prescribed. Notes experiencing PND often. - Allergies/Adverse Reactions Allergies Allergy/AdvReac Type Severity Reaction Status Date / Time No Known Allergies Allergy Verified 02/26/15 19:34 - Home Medications Medication Instructions Recorded Confirmed Type cloNIDine [Catapres] 0.1 mg PO HS #0 tab 03/06/15 09/09/18 Rx Carvedilol [Coreg] 3.125 mg PO BID 09/09/18 09/09/18 History NIFEdipine [Nifedipine ER] 1 tab PO DAILY 09/09/18 09/09/18 History Olmesartan Medoxomil [Benicar] 40 mg PO DAILY 09/09/18 09/09/18 History Spironolactone 25 mg PO DAILY 09/09/18 09/09/18 History Acetaminophen [Tylenol Regular 650 mg PO Q6H PRN tab 09/10/18 Rx Strength] Aspirin [Ecotrin Low Strength] 81 mg PO DAILY tab 09/10/18 Rx Furosemide [Lasix] 40 mg PO DAILY 09/10/18 09/10/18 History Rosuvastatin [Crestor] 20 mg PO HS #30 tab 09/10/18 Rx Docusate [Colace] 100 mg PO BIDPRN PRN cap 09/13/18 Rx - History PMHx: CVA, HTN, HLD, CHF, DM (diet controlled), CAD PSHx: tubal ligation FHx: HTN Social: denies TAD - Review of Systems General: denies: fever/chills, weight/appetite/sleep changes, night sweats Eyes: denies: eye pain, vision changes ENT: denies: nasal congestion, rhinorrhea Respiratory: reports: shortness of breath, exercise intolerance. denies: cough , congestion, other Cardiovascular: reports: edema, orthopnea. denies: chest pain, palpitation, paroxysmal nocturnal dyspnea Gastrointestinal: denies: nausea, vomiting, diarrhea, constipation, abdominal pain, GI bleeding Genitourinary: denies: incontinence, dysuria, polyuria Skin: denies: rashes, lesions Musculoskeletal: denies: pain, tenderness, swelling Neurological: denies: syncope, weakness Psychological: denies: anxiety, depression - Vital signs BP: 152/83 HR: 54 RR: 15 Tmax: 98.4 Pox: 97% on 2L - Physical Exam Constitutional: NAD, awake, alert and oriented, well developed HEENT: normocephalic and atraumatic, PERRLA, EOMI, grossly normal vision, grossly normal hearing, MMM Neck: FROM, no LAD -Neck: JVD noted Chest: no-tender to palpation Heart: pulses present -Heart: Bradycardic, regular rhythm, 3/6 systolic murmur, 2+ edema b/l up to knee Lungs: no respiratory distress -Lungs: rhonchi b/l bases Abdomen: soft, non-tender, bowel sounds present Musculoskeletal: normal structure, normal tone, ROM grossly normal Neurological: no focal deficit Psychiatric: normal mood and affect FMR H&P: Results - Labs Result Diagrams: 02/08/19 01:49 02/08/19 01:49 Lab results: WBC 7.3 thou/uL (4.8-10.8) 02/08/19 01:49 Hgb 10.6 g/dL (12.0-16.0) L 02/08/19 01:49 Hct 33.5 % (36.0-47.0) L 02/08/19 01:49 MCV 87.2 fL (78.0-98.0) 02/08/19 01:49 Plt Count 143 thou/uL (130-400) 02/08/19 01:49 Neutrophils % 72.7 % (42.0-75.0) 02/08/19 01:49 Sodium 142 mmol/L (136-145) 02/08/19 01:49 Potassium 3.8 mmol/L (3.5-5.1) 02/08/19 01:49 Chloride 106 mmol/L (98-107) 02/08/19 01:49 Carbon Dioxide 28 mmol/L (23-31) 02/08/19 01:49 BUN 25 mg/dL (9.8-20.1) H 02/08/19 01:49 Creatinine 1.12 mg/dL (0.6-1.1) H 02/08/19 01:49 Glucose 115 mg/dL (83-110) H 02/08/19 01:49 Calcium 9.4 mg/dL (7.8-10.44) 02/08/19 01:49 Total Bilirubin 0.4 mg/dL (0.2-1.2) 02/08/19 01:49 AST 26 U/L (5-34) 02/08/19 01:49 ALT 18 U/L (8-55) 02/08/19 01:49 Alkaline Phosphatase 62 U/L (40-110) 02/08/19 01:49 B-Natriuretic Peptide 1495.1 pg/mL (0-100) H 02/08/19 01:49 Serum Total Protein 7.1 g/dL (6.0-8.3) 02/08/19 01:49 Albumin 4.3 g/dL (3.4-4.8) 02/08/19 01:49 - EKG Interpretation EKG: NSR at rate of 64, no ST changes, evidence of LVH FMR H&P: A/P - Problem List (1) Diabetes mellitus, type II Current Visit: No Status: Acute Qualifiers: Diabetes mellitus half-way insulin use: without half-way use (2) Elevated brain natriuretic peptide (BNP) level Current Visit: No Status: Acute Code(s): R79.89 - OTHER SPECIFIED ABNORMAL FINDINGS OF BLOOD CHEMISTRY (3) CAD (coronary artery disease) Current Visit: No Status: Chronic Code(s): I25.10 - ATHSCL HEART DISEASE OF [place] CORONARY ARTERY W/O ANG PCTRS (4) HLD (hyperlipidemia) Current Visit: No Status: Chronic Code(s): E78.5 - HYPERLIPIDEMIA, UNSPECIFIED (5) HTN (hypertension) Current Visit: No Status: Chronic Code(s): I10 - ESSENTIAL (PRIMARY) HYPERTENSION Qualifiers: Hypertension type: essential hypertension Qualified Code(s): I10 - Essential (primary) hypertension (6) (HFpEF) heart failure with preserved ejection fraction Current Visit: Yes Status: Acute Code(s): I50.30 - UNSPECIFIED DIASTOLIC ( CONGESTIVE) HEART FAILURE - Plan Hypertensive Emergency - Initial BP 250 systolic - Resolved with nitro drip - Drip D/C'd, will continue to monitor pressures - Procardia daily started - Admit to tele for continued monitoring Flash Pulmonary Edema - Likely 2/2 to acute BP elevations - Pulmonary vascular congestion on CXR - Initial sat of 80% on RA, improved to 97% on 2L following diuretics and anti- htn rx HFpEF - Prev Echo 09/2018: 55-60%, diastolic dysfunction - Will repeat if pt decompensates again - BNP elevated: ~1500 - Continue diuresis w/ Lasix 40mg IV BID DM II - Diet controlled per pt - Will monitor - SSI HLD - Resume home rx when rec'd Dispo: Admit to tele inpt, continue cardiopulmonary monitoring, manage BP, and continue diuresis. Expected LOS >48hr PCP: Dr. Her FMR H&P: Upper Level - Pertinent history HPI: Patient is a 83yo F with PMH of HTN, HLD, HFpEF and T2DM presents via EMS for cc of SOB. Upon their arrival, BP 250/150, with audible wet lung sounds. Pt initially 221/125 on arrival,found to have b/l vascular congestion on Xray, placed on nitro drip and given IV Lasix 40mg. Pt requiring 2L O2 currently. Pt reports SOB onset this evening. Denied any CP, INMAN, vision changes, n/v, weakness, or confusion with this episode. - Pertinent findings VS: BP152/83, R15, P54, T98.4, O296% 2L, Wt- 67kg PE: General: NAD, AOx3 HEENT: prominent JVD, no LAD, moist MM Cardiac: Bradycardia, regular rhythm, 3/6 systolic murmur heard best L sternal border, distal pulses UE 2+ Respiratory: rhonchi b/l bases with decreased breath sounds over LLL Abd: BS+, no ttp Ext: 2+ edema b/l LE up to knees Pertinent Labs: BNP 1495 Trop 0.022 BUN/Cr: 25/1.12 Hgb 10.6 Imaging: CXR- b/l vascular congestion, R>L pleural effusions - Plan Date/Time: 02/08/19 0441 Katherine Young, have evaluated this patient and agree with findings/plan as outlined by internal control specialist resident. Pertinent changes/additions are listed here. A/P: 1.Hypertensive Emergency with Flash Pulmonary Edema -Placed on Nitro drip in ED, currently off drip with SBP 150. Goal BP for the next 23h is SBP <160/110. Admit to IMCU. Will start Procardia PO and continue IV Lasix. Awaiting home med rec. Strict I/O. Fluid restriction 1500ml. Repeat echo. 2.HFpEF: -Last echo 09/2018 EF 55-60% wth diastolic dysfunction -Repeat echo. 3.LAKESHIA -Baseline Cr 0.9, Cr 1.12 today -Trend BMP 4.Normocytic Anemia -Likely dilutional from volume up, continue to trend with CBC 5.Bradycardia -Pulse 55 during my exam, asymptomatic. 6.HTN -Await home med rec. treat as above. -Hold BB at this time. 7.T2DM -SSI, home med rec. Dispo: Likely stay 2-3 midnights DVT Ppx: Lovenox GI Ppx: Pepcid Addendum - Attending - Attending Attestation Date/Time: 02/08/19 1671 I personally evaluated the patient and discussed the management with Dr. Ospina. I agree with the History, Examination, Assessment and Plan documented above with any addition or exceptions noted below. Patient asymptomatic and off of NTG for ~4 hours at the time of my eval. Agree with plan but she can go to tele.
[2019-02-08] MEDS ORDERED: Acetaminophen 325 MG TAB PO PRN (08:01)
[2019-02-08] MEDS ORDERED: Dextrose 50% Abboject 50 ML SYRINGE SLOW IVP PRN (08:04)
[2019-02-08] MEDS ORDERED: Dextrose 5% in Water 1,000 ML IV PRN (08:04)
[2019-02-08] MEDS ORDERED: HumaLOG 300 UNITS/3 ML VIAL SC PRN ×2 (08:04)
[2019-02-08] MEDS ORDERED: Enoxaparin Sodium 40 MG/0.4 ML SYRINGE ONE (08:30)
--- NOTE | 2019-02-08 08:33 | RAD ---
PORTABLE CHEST: Date: 02/08/19 HISTORY: Dyspnea. COMPARISON: 09/09/18. FINDINGS/IMPRESSION: Cardiomegaly. Bibasilar infiltrates and/or atelectasis. There is mild vascular engorgement. Upper [place] gs are otherwise clear. POS: OFF
[2019-02-08] MEDS: Enoxaparin Sodium 40 MG/0.4 ML SYRINGE SC SCH (08:39)
[2019-02-08] MEDS ORDERED: Furosemide 40 MG/4 ML VIAL SLOW IVP SCH (08:45)
--- NOTE | 2019-02-08 11:09 | PRG ---
DATE OF SERVICE: 02/08/2019 Ms. Soto was admitted earlier with acute pulmonary edema and hypertensive emergency. She was treated initially with a nitrate drip and intravenous Lasix. This morning, she has much improved. She is awake, alert, no distress. No shortness of breath. We will continue to administer her heart failure medications in anticipation of a discharge likely by tomorrow. In the event, clinically, she has much improved from admission. Job ID: [id number]
[2019-02-08] MEDS: NIFEdipine XL 30 MG TAB PO SCH (11:37)
[2019-02-08] MEDS ORDERED: Acetaminophen 325 MG TAB ONE (11:39)
[2019-02-08] MEDS: Furosemide 40 MG/4 ML VIAL SLOW IVP SCH (16:50)
[2019-02-08 17:39] VITALS: BMI 26.9
[2019-02-08] MEDS ORDERED: cloNIDine 0.1 MG TAB PO SCH (21:00)
[2019-02-08] MEDS: Carvedilol 3.125 MG TAB PO SCH (21:33)
[2019-02-09 05:01] LABS: #Basophils 0.1 thou/uL (0.0-0.2); #Eosinphils 0.3 thou/uL (0.0-0.7); #Lymphocytes 1.5 thou/uL (1.20-3.40); #Monocytes 0.5 thou/uL (0.11-0.59); #Neutrophils 2.3 thou/uL (1.40-6.50); %Basophils 1.4 % (0.0-1.0); %Eosinophils 5.9 % (0.0-10.0); %Lymphocytes 32.5 % (21.0-51.0); %Monocytes 11.3 % (0.0-10.0); %Neutrophils 48.8 % (42.0-75.0); Hemoglobin 11.2 g/dL (12.0-16.0); Mean Corpuscular HGB CONC 31.8 g/dL (32.0-36.0); Mean Corpuscular Hemoglobin 27.6 pg (27.0-31.0); Mean Corpuscular Volume 86.9 fL (78.0-98.0); Mean Platelet Volume 11.7 fL (7.4-10.4); Platelet Count 152 thou/uL (130-400); Platelet Morphology Comment Appears Adequate; RBC Distribution Width 12.1 % (11.5-14.5); RBC Morphology Normal; Red Blood Cell (RBC) Count 4.05 mill/uL (4.20-5.40); White Blood Cell (WBC) Count 4.7 thou/uL (4.8-10.8)
[2019-02-09 05:11] LABS: Anion Gap 8 mmol/L (10-20); BUN (Urea Nitrogen) 26 mg/dL (9.8-20.1); Calc. Creatinine Clearance 35 mL/min (70-130); Calcium 9.2 mg/dL (7.8-10.44); Carbon Dioxide 37 mmol/L (23-31); Chloride 99 mmol/L (98-107); Estimated GFR-MDRD 53; Glucose 90 mg/dL (83-110); Potassium 3.4 mmol/L (3.5-5.1); Sodium 141 mmol/L (136-145)
[2019-02-09] MEDS: Furosemide 40 MG/4 ML VIAL SLOW IVP SCH ×2 (05:20→14:42)
--- NOTE | 2019-02-09 06:36 | PDOC.FM ---
- Subjective Subjective: Patient denies any complaints this mornings. Denies chest pain/tightness, shortness of breath, nausea, dysuria. Patient has put out about 1750 mL urine so far. - Objective MAR Reviewed: Yes Vital Signs & Weight: Vital Signs (12 hours) Temp Pulse Resp BP BP Pulse Ox 02/09/19 04:00 97.8 F 51 L 19 171/88 H 96 02/08/19 23:42 97.6 F 51 L 18 151/82 H 100 02/08/19 21:33 153/74 H 02/08/19 20:00 99 Weight Weight 62.641 kg I&O: 02/07/19 02/08/19 02/09/19 06:59 06:59 06:59 Intake Total 10 Output Total 1750 Balance -1740 Result Diagrams: 02/09/19 04:01 02/09/19 04:01 Phys Exam - Physical Examination Constitutional: NAD HEENT: moist MMs, sclera anicteric Neck: no JVD, supple, full ROM Respiratory: no wheezing, no rhonchi, clear to auscultation bilateral Cardiovascular: RRR grade 2/3 systolic murmur over mitral valve Gastrointestinal: soft, non-tender, no distention, positive bowel sounds Musculoskeletal: no edema, pulses present Neurological: normal sensation, moves all 4 limbs Psychiatric: normal affect Skin: no rash, normal turgor Dx/Plan (1) Acute respiratory failure with hypoxia Code(s): J96.01 - ACUTE RESPIRATORY FAILURE WITH HYPOXIA Status: Acute (2) Acute exacerbation of CHF (congestive heart failure) Code(s): I50.9 - HEART FAILURE, UNSPECIFIED Status: Acute Qualifiers: Heart failure type: diastolic Qualified Code(s): I50.33 - Acute on chronic diastolic (congestive) heart failure (3) Hypertensive emergency Code(s): I16.1 - HYPERTENSIVE EMERGENCY Status: Acute (4) (HFpEF) heart failure with preserved ejection fraction Code(s): I50.30 - UNSPECIFIED DIASTOLIC (CONGESTIVE) HEART FAILURE Status: Acute Qualifiers: Heart failure chronicity: acute Qualified Code(s): I50.31 - Acute diastolic (congestive) heart failure - Plan Plan: Patient is a 84 yo female who presents with dyspnea is admitted for acute hypoxic respiratory failure & HTN Emergency: #Hypertensive Emergency - Initial BP 250 systolic/150 diastolic (MAP of 180) - Resolved with nitro drip to 150 systolic, MAP of 105 - Drip D/C'd, will continue to monitor pressures - Procardia 30 mg daily started - place on telemetry for continued monitoring #Acute Hypoxic Respiratory Failure - 2/2 CHF exacerbation, Flash Pulmonary Edema - acute BP elevations contributing factor - Pulmonary vascular congestion & cardiomegaly on CXR - Initial sat of 80% on RA, improved to 97% on 2L following diuretics and anti- htn rx #HFpEF - Prev Echo 09/2018: 55-60%, diastolic dysfunction - Will repeat if pt decompensates again - BNP elevated: ~1500 - Continue diuresis w/ Lasix 40mg IV BID, has output of 1750 mL so far #DM II - Diet controlled per pt - Will monitor - SSI #HLD - Resume home med Dispo: Admit to telemetry. Continue cardiopulmonary monitoring, manage BP, and continue diuresis. Expected LOS <48hr PCP: Dr. Her Heading Machine Operator: Dr. David, has outpt appt on Feb 13
[2019-02-09] MEDS: NIFEdipine XL 30 MG TAB PO SCH (08:38)
[2019-02-09] MEDS: Carvedilol 3.125 MG TAB PO SCH (08:39)
[2019-02-09] MEDS: Enoxaparin Sodium 40 MG/0.4 ML SYRINGE SC SCH (08:40)
[2019-02-09] MEDS ORDERED: Spironolactone 25 MG TAB PO SCH (09:00)
[2019-02-09] MEDS ORDERED: Aspirin 81 mg Enteric Coated Tablet PO SCH (09:00)
[2019-02-09] MEDS ORDERED: Losartan 25 MG TAB PO SCH (09:00)
[2019-02-09] MEDS ORDERED: Furosemide 40 MG TAB PO SCH (09:00)
--- NOTE | 2019-02-09 11:44 | PRG ---
DATE OF SERVICE: 02/09/2019 Ms. Soto was admitted yesterday in acute pulmonary edema and hypertensive emergency with a systolic blood pressure 250. She was treated appropriately with a nitrite infusion and intravenous Lasix. This morning, she looks and feels much better. Not having any significant shortness of breath. She is very anxious to go home. Her tropes were low at 0.022. Her potassium this morning is 3.4. Her BNP on admission was 1495. Clinically, she has improved and ready to go home. Job ID: [id number]
[2019-02-09] MEDS ORDERED: cloNIDine 0.1 MG TAB PO PRN (14:30)
[2019-02-09] MEDS ORDERED: Potassium Chloride 20 MEQ TAB PO SCH (14:30)
[2019-02-09] MEDS ORDERED: hydrALAZINE 25 MG TAB PO SCH (15:00)
[2019-02-09 15:29] VITALS: BP 173/85; TEMP 97.6
[2019-02-09] MEDS ORDERED: FLU VACC TS2019-20(65YR UP)/PF 180 MCG/0.5 ML SYRINGE IM ONE (18:00)
[2019-02-09] MEDS ORDERED: Trospium 20 MG TAB PO SCH (21:00)
[2019-02-09] MEDS ORDERED: Rosuvastatin 20 MG TAB PO SCH (21:00)
--- NOTE | 2019-02-10 05:40 | DIS ---
DATE OF ADMISSION: 02/08/2019 DATE OF DISCHARGE: 02/09/2019 RESIDENT: Rola Santos DO ADMITTING ATTENDING: Damian Dias MD DISCHARGE ATTENDING: Cliff Cazares MD CONSULTS: 1. Case Management. 2. Cardiac Rehab, inpatient, outpatient. 3. CV Team. 4. Heart Failure Clinic. PROCEDURES PERFORMED: 1. Chest x-ray on February 08, 2019: Cardiomegaly. Bibasilar infiltrates and/or atelectasis. There is mild vascular engorgement. Upper lungs are otherwise clear. PRIMARY DIAGNOSIS: Hypertensive emergency. SECONDARY DIAGNOSES: 1. Acute hypoxic respiratory failure. 2. Heart failure with preserved ejection fraction. 3. Diabetes mellitus, type 2. 4. Hyperlipidemia. DISCHARGE MEDICATIONS: 1. Olmesartan medoxomil (Benicar) 40 mg p.o. daily. 2. Spironolactone 25 mg p.o. daily. 3. Nifedipine 60 mg p.o. daily. 4. Carvedilol 3.125 mg p.o. b.i.d. 5. Furosemide 40 mg p.o. daily. 6. Rosuvastatin 20 mg p.o. at bedtime. 7. Docusate 100 mg p.o. b.i.d. p.r.n. for constipation. 8. Hydrochlorothiazide 25 mg p.o. daily. 9. Hydralazine 100 mg p.o. t.i.d. 10. Clonidine 0.1 mg p.o. daily p.r.n. for hypertension. 11. Aspirin 81 mg p.o. daily. 12. VESIcare 10 mg p.o. daily. DISCONTINUED MEDICATIONS: 1. Enoxaparin sodium (Lovenox) 40 mg subcu daily. 2. IV furosemide 40 mg b.i.d. HISTORY OF PRESENT ILLNESS/HOSPITAL COURSE: The patient is an 84-year-old female, who presented via EMS with complaints of shortness of breath. The patient stated that she woke in the middle of the night with significant shortness of breath. She felt this was continuing to worsen, so she called EMS for transfer. Upon arrival, the patient had an oxygen saturation of 80% and a systolic blood pressure of 250. The patient was given 40 mg IV Lasix and started on nitroglycerin drip. At the time of resident evaluation, the patient was saturating at 97% on 2 L with normal respirations and blood pressure was 155 systolic. The patient was off nitroglycerin drip. The patient noted that her blood pressure gets very high at random time and that could not be attributed to anything. She states she is taking her medications as prescribed. She also notes experiencing shortness of breath while lying flat and at night very often. The patient was admitted to inpatient on telemetry unit for continued cardiopulmonary monitoring and blood pressure management, as well as continued diuresis. The patient continued to be monitored on the telemetry floor. Her blood pressures remained stable and slightly elevated. No blood pressures in the severe range. Her heart rate remained in the 50s for the duration of stay. The patient's oxygen saturation requirement vary between room to 2 L. However, patient said her shortness of breath had resolved and she did not complain about it for the rest of her stay. The patient's pulmonary edema seen on chest x-ray likely secondary to acute blood pressure elevation. Of note, the patient had a previous echo completed in September 2018, which showed an EF of 55% to 60%, and diastolic dysfunction. The patient was continued on Lasix 40 mg IV b.i.d. and continued to diurese well, putting out a total of almost 2 L of fluid. On the morning of February 09, 2019 , the patient had no complaints. It was discovered that the patient had an outpatient appointment with Dr. David, Cardiology, on February 13. The patient stated that she felt much better and desired to go home. At this point, the patient's vital signs were stable and she was nearly euvolemic on exam. It was determined to discharge the patient back to home with Home Health Services, as well as close followup with Cardiac Rehab and Heart Failure Clinic. PERTINENT LABORATORY DATA: BNP 1495. DISPOSITION: Stable. DISCHARGE INSTRUCTIONS: 1. Location: Home with Home Health Services. 2. Diet: Heart healthy, low-sodium, fluid restriction of 1500 mL. 3. Activity: As tolerated. 4. Followup: Follow up with Cardiac Rehab, [facility], [facility], all within the next day. Follow up with Dr. Her in 3 to 5 days for hospital followup. Follow up with Dr. David, Cardiology, on February 13, 2019 at 9 a.m. Job ID: [id number] [facility]ITAL[facility]ri
[2019-02-10] MEDS ORDERED: Hydrochlorothiazide 25 MG TAB PO SCH (09:00)
[2019-02-10] MEDS ORDERED: NIFEdipine XL 60 MG TAB PO SCH (09:00)
[2019-02-10] MEDS ORDERED: Aspirin 81 mg Enteric Coated Tablet PO SCH (09:00)
== END 2019-02-09 16:39 | disposition home health service (06) | DRG 291 ==
LOC: ERS 01:29 → ERHOLD 03:50 → 2NO 17:47
PROVIDERS: ADMIT Emergency Medicine; ATTEND Emergency Medicine
DX: I11.0 Hypertensive heart disease with heart failure (principal); J96.01 Acute respiratory failure with hypoxia; I50.31 Acute diastolic (congestive) heart failure; I16.1 Hypertensive emergency; E11.9 Type 2 diabetes mellitus without complications; E78.5 Hyperlipidemia, unspecified; I25.10 Atherosclerotic heart disease of native coronary artery without angina pectoris; D64.9 Anemia, unspecified; R00.1 Bradycardia, unspecified; I16.0 Hypertensive urgency; Z86.73 Personal history of transient ischemic attack (TIA), and cerebral infarction without residual deficits; Z98.51 Tubal ligation status
CPT/HCPCS: 36415; 36416; 71045; 80048; 80053; 83880; 84484; 85025; 93005; 93798; 94760; 96365; 96366; 96375; J1650; J1940

== ENCOUNTER 2020-07-04 10:46 | Inpatient (IN) | payer MEDICARE, MEDICAID ==
[2020-07-04 11:37] LABS: #Eosinphils 0.2 thou/uL (0.0-0.7); #Lymphocytes 1.2 thou/uL (1.20-3.40); #Monocytes 0.4 thou/uL (0.11-0.59); #Neutrophils 3.4 thou/uL (1.40-6.50); %Basophils 0.8 % (0.0-1.0); %Eosinophils 3.6 % (0.0-10.0); %Lymphocytes 23.2 % (21.0-51.0); %Monocytes 7.7 % (0.0-10.0); %Neutrophils 64.8 % (42.0-75.0); Hemoglobin 12.9 g/dL (12.0-16.0); Mean Corpuscular HGB CONC 30.2 g/dL (32.0-36.0); Mean Corpuscular Hemoglobin 26.2 pg (27.0-31.0); Mean Corpuscular Volume 86.9 fL (78.0-98.0); Mean Platelet Volume 9.1 fL (7.4-10.4); Platelet Count 222 thou/uL (130-400); RBC Distribution Width 12.6 % (11.5-14.5); Red Blood Cell (RBC) Count 4.92 mill/uL (4.20-5.40); White Blood Cell (WBC) Count 5.3 thou/uL (4.8-10.8)
[2020-07-04 11:54] LABS: ALT (SGPT) 31 U/L (8-55); AST (SGOT) 37 U/L (5-34); Albumin 4.2 g/dL (3.4-4.8); Alkaline Phosphatase 94 U/L (40-110); Anion Gap 12 mmol/L (10-20); BUN (Urea Nitrogen) 26 mg/dL (9.8-20.1); Bilirubin, Total 0.6 mg/dL (0.2-1.2); Calc. Creatinine Clearance 0 mL/min (70-130); Calcium 9.3 mg/dL (7.8-10.44); Carbon Dioxide 35 mmol/L (23-31); Chloride 102 mmol/L (98-107); Globulin 3.4 g/dL (2.4-3.5); Glucose 85 mg/dL (83-110); Potassium 3.8 mmol/L (3.5-5.1); Protein, Total 7.6 g/dL (5.8-8.1); Sodium 145 mmol/L (136-145)
[2020-07-04] MEDS ORDERED: Diltiazem 125 MG/25 ML ONE (12:16)
[2020-07-04] MEDS ORDERED: Aspirin Chewable 81 MG TAB ONE (12:16)
[2020-07-04] MEDS ORDERED: Enoxaparin Sodium 80 MG/0.8 ML SYRINGE ONE (12:16)
[2020-07-04] MEDS ORDERED: Acetaminophen 325 MG TAB PO PRN (13:05)
[2020-07-04] MEDS ORDERED: hydrALAZINE 20 MG/ML VIAL ONE (13:07)
[2020-07-04] MEDS ORDERED: hydrALAZINE 20 MG/ML VIAL SLOW IVP PRN (13:29)
[2020-07-04] MEDS ORDERED: Furosemide 100 MG/10 ML VIAL SLOW IVP SCH (13:45)
[2020-07-04 16:06] LABS: Troponin I 0.081 ng/mL (< 0.028)
[2020-07-04 16:13] LABS: Phosphorus 3.3 mg/dL (2.3-4.7)
[2020-07-04] MEDS: Losartan 25 MG TAB PO SCH (17:47)
[2020-07-04] MEDS: Amiodarone 200 MG TAB PO SCH ×2 (17:47→20:06)
[2020-07-04] MEDS ORDERED: Potassium Chloride 20 MEQ TAB PO SCH (18:30)
[2020-07-04 20:01] LABS: Troponin I 0.091 ng/mL (< 0.028)
[2020-07-04] MEDS: Enoxaparin Sodium 80 MG/0.8 ML SYRINGE SC SCH (20:08)
[2020-07-04 22:36] LABS: SARS-CoV-2 PCR by NAA Not Detected (NotDetected)
[2020-07-05 04:19] LABS: #Eosinphils 0.2 thou/uL (0.0-0.7); #Lymphocytes 1.2 thou/uL (1.20-3.40); #Monocytes 0.4 thou/uL (0.11-0.59); #Neutrophils 2.3 thou/uL (1.40-6.50); %Eosinophils 5.7 % (0.0-10.0); %Lymphocytes 27.9 % (21.0-51.0); %Monocytes 10.5 % (0.0-10.0); Hemoglobin 11.9 g/dL (12.0-16.0); Mean Corpuscular HGB CONC 31.5 g/dL (32.0-36.0); Mean Corpuscular Hemoglobin 27.1 pg (27.0-31.0); Mean Corpuscular Volume 86.1 fL (78.0-98.0); Mean Platelet Volume 9.4 fL (7.4-10.4); Platelet Count 199 thou/uL (130-400); RBC Distribution Width 12.3 % (11.5-14.5); Red Blood Cell (RBC) Count 4.41 mill/uL (4.20-5.40); White Blood Cell (WBC) Count 4.2 thou/uL (4.8-10.8)
[2020-07-05 04:40] LABS: ALT (SGPT) 24 U/L (8-55); AST (SGOT) 24 U/L (5-34); Albumin 3.3 g/dL (3.4-4.8); Alkaline Phosphatase 76 U/L (40-110); Anion Gap 13 mmol/L (10-20); BUN (Urea Nitrogen) 27 mg/dL (9.8-20.1); Bilirubin, Total 0.6 mg/dL (0.2-1.2); Calc. Creatinine Clearance 35 mL/min (70-130); Calcium 8.5 mg/dL (7.8-10.44); Carbon Dioxide 30 mmol/L (23-31); Chloride 103 mmol/L (98-107); Globulin 3.1 g/dL (2.4-3.5); Glucose 97 mg/dL (83-110); Protein, Total 6.4 g/dL (5.8-8.1); Sodium 142 mmol/L (136-145)
[2020-07-05] MEDS: Amiodarone 200 MG TAB PO SCH ×3 (08:00→21:13)
[2020-07-05] MEDS ORDERED: Losartan 25 MG TAB PO SCH (08:00)
[2020-07-05] MEDS: Losartan 25 MG TAB PO SCH (08:11)
[2020-07-05] MEDS ORDERED: Furosemide 100 MG/10 ML VIAL SLOW IVP SCH (09:00)
[2020-07-05] MEDS ORDERED: Enoxaparin Sodium 40 MG/0.4 ML SYRINGE SC SCH ×2 (09:00)
[2020-07-05] MEDS ORDERED: Ketamine 50 MG/ML (10ML VIAL) ONE (10:19)
[2020-07-05] MEDS ORDERED: PROPOFOL 200 MG/20 ML VIAL ONE (10:53)
[2020-07-05] MEDS ORDERED: NIFEdipine XL 60 MG TAB PO SCH ×2 (11:14→11:30)
[2020-07-05] MEDS ORDERED: Amiodarone 200 MG TAB PO SCH ×2 (11:14→11:15)
[2020-07-05] MEDS ORDERED: Furosemide 40 MG/4 ML VIAL SLOW IVP SCH (11:15)
[2020-07-05] MEDS ORDERED: Magnesium 2 GM/50 ML 2 GM in Premix Bag 1 BAG IVPB SCH (11:30)
[2020-07-05 14:49] VITALS: BMI 27.4
[2020-07-05] MEDS ORDERED: Potassium Chloride 20 MEQ TAB PO SCH (16:00)
[2020-07-05] MEDS ORDERED: FLU VACC QS2020-21(65YR UP)/PF 240 MCG/0.7 ML SYRINGE IM ONE (17:30)
[2020-07-05] MEDS: Enoxaparin Sodium 80 MG/0.8 ML SYRINGE SC SCH (17:42)
[2020-07-05] MEDS: Enoxaparin Sodium 60 MG/0.6 ML SYRINGE SC SCH (21:13)
[2020-07-06 04:36] LABS: Hemoglobin 11.3 g/dL (12.0-16.0); Platelet Count 206 thou/uL (130-400)
[2020-07-06] MEDS: Potassium Bicarbonate/Cit Ac 20 MEQ TAB PO SCH (08:27)
[2020-07-06] MEDS: Amiodarone 200 MG TAB PO SCH ×3 (08:28→23:01)
[2020-07-06] MEDS: NIFEdipine XL 60 MG TAB PO SCH (08:28)
[2020-07-06] MEDS: Enoxaparin Sodium 60 MG/0.6 ML SYRINGE SC SCH ×2 (08:28→23:01)
[2020-07-06] MEDS: Furosemide 40 MG/4 ML VIAL SLOW IVP SCH (08:28)
[2020-07-06] MEDS: Losartan 25 MG TAB PO SCH (08:28)
[2020-07-06] MEDS ORDERED: Enoxaparin Sodium 80 MG/0.8 ML SYRINGE SC SCH (09:00)
[2020-07-06] MEDS ORDERED: Furosemide 40 MG/4 ML VIAL SLOW IVP SCH (16:00)
[2020-07-07 06:01] LABS: Anion Gap 10 mmol/L (10-20); BUN (Urea Nitrogen) 30 mg/dL (9.8-20.1); Calc. Creatinine Clearance 33 mL/min (70-130); Calcium 8.3 mg/dL (7.8-10.44); Carbon Dioxide 34 mmol/L (23-31); Chloride 101 mmol/L (98-107); Glucose 81 mg/dL (83-110); Potassium 3.7 mmol/L (3.5-5.1); Sodium 141 mmol/L (136-145)
[2020-07-07] MEDS: Amiodarone 200 MG TAB PO SCH (08:14)
[2020-07-07] MEDS: Enoxaparin Sodium 60 MG/0.6 ML SYRINGE SC SCH (08:14)
[2020-07-07] MEDS: Potassium Bicarbonate/Cit Ac 20 MEQ TAB PO SCH (08:14)
[2020-07-07] MEDS: NIFEdipine XL 60 MG TAB PO SCH (08:15)
[2020-07-07] MEDS: Losartan 25 MG TAB PO SCH (08:15)
[2020-07-07] MEDS: Furosemide 40 MG/4 ML VIAL SLOW IVP SCH (08:15)
[2020-07-07 15:00] VITALS: BP 157/82; TEMP 98.6
[2020-07-07] MEDS ORDERED: Apixaban 2.5 MG TAB PO SCH (21:00)
[2020-07-08] MEDS ORDERED: Amiodarone 200 MG TAB PO SCH (09:00)
== END 2020-07-07 16:40 | disposition home health service (06) | DRG 291 ==
LOC: ERS 10:46 → ERHOLD 13:09 → 2NO 15:39
PROVIDERS: ADMIT Family Medicine; ATTEND Family Medicine
PROC: B24BZZ4 Ultrasonography of Heart with Aorta, Transesophageal (ICD-10-PCS; principal; 2020-07-05)
PROC: 5A2204Z Restoration of Cardiac Rhythm, Single (ICD-10-PCS; 2020-07-06)
DX: I13.0 Hypertensive heart and chronic kidney disease with heart failure and stage 1 through stage 4 chronic kidney disease, or unspecified chronic kidney disease (principal); I50.33 Acute on chronic diastolic (congestive) heart failure; N17.9 Acute kidney failure, unspecified; Z20.822 Contact with and (suspected) exposure to COVID-19; I25.10 Atherosclerotic heart disease of native coronary artery without angina pectoris; E78.5 Hyperlipidemia, unspecified; I73.9 Peripheral vascular disease, unspecified; I87.8 Other specified disorders of veins; I16.0 Hypertensive urgency; N18.9 Chronic kidney disease, unspecified; K21.9 Gastro-esophageal reflux disease without esophagitis; I48.0 Paroxysmal atrial fibrillation; I08.1 Rheumatic disorders of both mitral and tricuspid valves; Z79.82 Long term (current) use of aspirin; Z79.899 Other long term (current) drug therapy; Z86.73 Personal history of transient ischemic attack (TIA), and cerebral infarction without residual deficits; Z98.51 Tubal ligation status
CPT/HCPCS: 36415; 71045; 80048; 80053; 82553; 82565; 83735; 83880; 84100; 84443; 84484; 85014; 85018; 85025; 85049; 87635; 92960; 93005; 93010; 93312; 94760; 96365; 96366; 96372; 96375; 96376; J0360; J1650; J1940; J2704; J3475; U0003; U0005

== ENCOUNTER 2021-08-08 13:57 | Outpatient (CLI) | payer MEDICARE, MEDICAID ==
[2021-08-08 15:49] LABS: #Basophils 0.1 10x3/uL (0.0-0.2); #Eosinphils 0.5 10x3/uL (0.0-0.5); #Monocytes 0.5 10x3/uL (0.0-1.1); #Neutrophils 3.5 10x3/uL (1.5-8.4); %Basophils 1.5 % (0.0-2.0); %Eosinophils 8.4 % (0.0-6.0); %Lymphocytes 17.7 % (18.0-47.0); %Monocytes 9.1 % (0.0-10.0); %Neutrophils 62.9 % (40.0-75.0); Hemoglobin 11.6 g/dL (12.0-15.5); Mean Corpuscular HGB CONC 30.6 g/dL (32.0-36.0); Mean Corpuscular Hemoglobin 26.4 pg (27.0-33.0); Mean Corpuscular Volume 86.3 fl (81.6-98.3); Mean Platelet Volume 12.4 fl (7.4-10.4); Platelet Count 191 10x3/uL (150-450); Red Blood Cell (RBC) Count 4.39 10x6/uL (3.90-5.03); White Blood Cell (WBC) Count 5.5 10x3/uL (3.5-10.5)
[2021-08-08 16:07] LABS: INR-International Normal Ratio 1.2; Prothrombin Time 12.9 sec (9.5-12.1)
[2021-08-08 16:08] LABS: Anion Gap 13 mmol/L (10-20); BUN (Urea Nitrogen) 34 mg/dL (9.8-20.1); Calc. Creatinine Clearance 0 mL/min (70-130); Calcium 9.4 mg/dL (7.8-10.44); Carbon Dioxide 32 mmol/L (23-31); Chloride 101 mmol/L (98-107); Glucose 97 mg/dL (83-110); Potassium 4.3 mmol/L (3.5-5.1); Sodium 142 mmol/L (136-145)
[2021-08-09 15:47] LABS: SARS-CoV-2 PCR by NAA Not Detected (NotDetected)
== END 2021-08-08 13:58 | disposition home or self-care (01) ==
LOC: LABBT 13:57
PROVIDERS: ATTEND Internal Medicine Cardiovascular Disease
DX: Z01.818 Encounter for other preprocedural examination (principal); I48.0 Paroxysmal atrial fibrillation; Z20.822 Contact with and (suspected) exposure to COVID-19
CPT/HCPCS: 80048; 85025; 85610; 85730; U0003; U0005

== ENCOUNTER 2021-08-13 09:55 | Day surgery (SDC) | payer MEDICARE, MEDICAID ==
[2021-08-08 12:44] VITALS: BMI 27.4
[2021-08-13] MEDS ORDERED: PROPOFOL 20 ML ONE (12:29)
[2021-08-13] MEDS ORDERED: Lidocaine 1% PF 5 ML VIAL ONE (12:29)
== END 2021-08-13 14:28 | disposition home or self-care (01) ==
LOC: SDC 09:55
PROVIDERS: ATTEND Internal Medicine Cardiovascular Disease
PROC: 5A2204Z Restoration of Cardiac Rhythm, Single (ICD-10-PCS; principal; 2021-08-13)
DX: I48.0 Paroxysmal atrial fibrillation (principal); I48.4 Atypical atrial flutter; I13.0 Hypertensive heart and chronic kidney disease with heart failure and stage 1 through stage 4 chronic kidney disease, or unspecified chronic kidney disease; N18.9 Chronic kidney disease, unspecified; I50.30 Unspecified diastolic (congestive) heart failure; I08.1 Rheumatic disorders of both mitral and tricuspid valves; E78.5 Hyperlipidemia, unspecified; I73.9 Peripheral vascular disease, unspecified; I25.10 Atherosclerotic heart disease of native coronary artery without angina pectoris; K21.9 Gastro-esophageal reflux disease without esophagitis; I25.2 Old myocardial infarction; Z79.01 Long term (current) use of anticoagulants; Z79.82 Long term (current) use of aspirin; Z79.899 Other long term (current) drug therapy
CPT/HCPCS: 92960; 93005; 93010; J2704

== ENCOUNTER 2021-08-15 10:55 | Emergency (ER) | payer MEDICARE, MEDICAID ==
[2021-08-15 11:43] LABS: Hemoglobin 11.1 g/dL (12.0-16.0); Mean Corpuscular HGB CONC 33.4 g/dL (32.0-36.0); Mean Corpuscular Hemoglobin 30.3 pg (27.0-31.0); Mean Corpuscular Volume 90.7 fL (78.0-98.0); RBC Distribution Width 14.1 % (11.5-14.5); Red Blood Cell (RBC) Count 3.67 mill/uL (4.20-5.40); White Blood Cell (WBC) Count 6.1 thou/uL (4.8-10.8)
[2021-08-15 11:44] LABS: #Eosinphils 0.3 thou/uL (0.0-0.7); #Lymphocytes 0.8 thou/uL (1.20-3.40); #Monocytes 0.6 thou/uL (0.11-0.59); #Neutrophils 4.2 thou/uL (1.40-6.50); %Basophils 0.6 % (0.0-1.0); %Eosinophils 5.2 % (0.0-10.0); %Lymphocytes 13.8 % (21.0-51.0); %Monocytes 10.6 % (0.0-10.0); %Neutrophils 69.8 % (42.0-75.0)
[2021-08-15 11:50] LABS: INR-International Normal Ratio 1.5; PTT 37.2 sec (22.9-36.1); Prothrombin Time 18.7 sec (12.0-14.7)
[2021-08-15 11:55] LABS: Mean Platelet Volume 6.1 fL (7.4-10.4); Platelet Count 124 thou/uL (130-400); Platelet Morphology Comment Appears Decreased; RBC Morphology Normal
[2021-08-15 12:30] LABS: ALT (SGPT) 27 U/L (8-55); AST (SGOT) 39 U/L (5-34); Albumin 3.7 g/dL (3.4-4.8); Alkaline Phosphatase 56 U/L (40-110); Anion Gap 11 mmol/L (10-20); BUN (Urea Nitrogen) 29 mg/dL (9.8-20.1); Bilirubin, Total 0.9 mg/dL (0.2-1.2); Calc. Creatinine Clearance 0 mL/min (70-130); Calcium 8.6 mg/dL (7.8-10.44); Carbon Dioxide 30 mmol/L (23-31); Chloride 104 mmol/L (98-107); Globulin 3.2 g/dL (2.4-3.5); Glucose 115 mg/dL (83-110); Potassium 3.6 mmol/L (3.5-5.1); Protein, Total 6.9 g/dL (5.8-8.1); Sodium 141 mmol/L (136-145)
[2021-08-15 12:53] LABS: CKMB 2.3 ng/mL (0-6.6)
[2021-08-15] MEDS ORDERED: Furosemide 40 MG/4 ML VIAL ONE (13:23)
[2021-08-15] MEDS ORDERED: Potassium Chloride 20 MEQ TAB ONE (13:23)
== END 2021-08-15 15:44 | disposition home or self-care (01) ==
LOC: ERS 10:55
DX: I50.9 Heart failure, unspecified (principal); I10 Essential (primary) hypertension; Z86.73 Personal history of transient ischemic attack (TIA), and cerebral infarction without residual deficits; Z79.82 Long term (current) use of aspirin; Z79.01 Long term (current) use of anticoagulants; Z79.899 Other long term (current) drug therapy
CPT/HCPCS: 71045; 80053; 82553; 83880; 84484; 85025; 85610; 85730; 93005; 94760; 96374; J1940